=== PATIENT | male | born 1955 | race Caucasian/White ===

== ENCOUNTER 2016-10-08 05:17 | Emergency (ER) | payer OTHER ==
[~2016-10-08] VITALS: Ht 165.1 cm; Wt 95.9 kg
[~2016-10-08 05:17] MED LIST: AMLO2.5T PO; IBUP-2070 PO; METH10 PO
[2016-10-08] MEDS ORDERED: KETOROLAC TROMETHAMINE 60 MG/2 ML VIAL IM ONE (06:30)
[2016-10-08 08:48] VITALS: BP 144/95
== END 2016-10-08 08:52 | disposition home or self-care (01) ==
LOC: EMS 05:19
DX: S29.012A Strain of muscle and tendon of back wall of thorax, initial encounter (principal); I10 Essential (primary) hypertension; F17.210 Nicotine dependence, cigarettes, uncomplicated; V19.9XXA Pedal cyclist (driver) (passenger) injured in unspecified traffic accident, initial encounter; Y93.89 Activity, other specified; Y92.89 Other specified places as the place of occurrence of the external cause; Y99.8 Other external cause status
CPT/HCPCS: 71010; 96372; 99283; J1885

== ENCOUNTER 2016-10-31 14:16 | Emergency (ER) | payer OTHER ==
[~2016-10-31] VITALS: Ht 172.7 cm; Wt 96.4 kg
[2016-10-31] MEDS ORDERED: KETOROLAC TROMETHAMINE 60 MG/2 ML VIAL IM ONE (16:15)
[2016-10-31] MEDS ORDERED: METHOCARBAMOL 500 MG TABLET PO ONE (16:15)
[2016-10-31 18:05] VITALS: BP 159/80
== END 2016-10-31 18:06 | disposition home or self-care (01) ==
LOC: EMS 14:18
DX: M54.6 Pain in thoracic spine (principal); I10 Essential (primary) hypertension; F17.210 Nicotine dependence, cigarettes, uncomplicated
CPT/HCPCS: 96372; 99283; J1885

== ENCOUNTER 2018-01-24 09:32 | Emergency (ER) | payer OTHER ==
[~2018-01-24] VITALS: Ht 162.6 cm; Wt 77.7 kg
[~2018-01-24 09:32] MED LIST changes: -AMLO2.5T PO; +AMLO5TAB66 PO; +DOXY50CA2 PO; +HYDR25TA PO; -IBUP-2070 PO; +IPRA3S NASAL; +IPRAHFA IH; -METH10 PO
[2018-01-24] MEDS ORDERED: BUPIVACAINE HCL/PF 0.5% 10 ML VIAL SQ ONE (12:00)
[2018-01-24 12:21] LABS: BASOPHILS % (AUTO) 0.7 % (0.0-2.0); EOSINOPHILS % (AUTO) 1.2 % (1.0-6.0); HEMATOCRIT 36.5 % (41-53); LYMPHOCYTES # (AUTO) 1.1 K/uL (1.0-4.8); LYMPHOCYTES % (AUTO) 20.7 % (22.0-44.0); MEAN CORPUSCULAR HEMOGLOBIN 36.6 pg (26.0-34.0); MEAN CORPUSCULAR HGB CONC 35.4 G/dL (31.0-37.0); MEAN CORPUSCULAR VOLUME 103 fL (80-100); MONOCYTES # (AUTO) 0.4 K/uL (0.1-1.0); MONOCYTES % (AUTO) 6.9 % (2.0-9.0); NEUTROPHILS # (AUTO) 3.8 K/uL (1.8-7.7); NEUTROPHILS % (AUTO) 70.5 % (40.0-70.0); PLATELET COUNT (AUTO) 83 K/uL (150-450); RED BLOOD CELL COUNT(AUTO) 3.54 MIL/uL (4.50-5.90); RED CELL DISTRIBUTION WIDTH 14.4 % (11.5-14.5)
[2018-01-24 12:35] LABS: ANION GAP 9 mmol/L (8-16); CALCIUM, TOTAL 8.9 mg/dL (8.8-10.5); CARBON DIOXIDE 29 mmol/L (22-29); CHLORIDE 103 mmol/L (98-107); CREATININE 0.66 mg/dL (0.60-1.30); GLOMERULAR FILTR. RATE CALC > 60 mL/min (>60); GLUCOSE,RANDOM 84 mg/dL (70-110); POTASSIUM 4.2 mmol/L (3.5-5.1); SODIUM SERUM 141 mmol/L (136-145); UREA NITROGEN, BLOOD 7 mg/dL (7-18)
[2018-01-24 12:40] LABS: APPEARANCE,URINE CLEAR (CLEAR); BILIRUBIN,URINE NEGATIVE (NEGATIVE); GLUCOSE, URINE (UA) NEGATIVE (NEGATIVE); KETONES,URINE NEGATIVE (NEGATIVE); LEUKOCYTE ESTERASE ,URINE NEGATIVE (NEGATIVE); NITRATE,URINE NEGATIVE (NEGATIVE); OCCULT BLOOD,URINE NEGATIVE (NEGATIVE); PROTEIN,URINE NEGATIVE (NEGATIVE)
[2018-01-24 12:41] LABS: AMPHET/METH SCREEN,URINE NEGATIVE (NEGATIVE); BARBITURATE SCREEN, URINE NEGATIVE (NEGATIVE); BENZODIAZEPINES SCREEN,URINE NEGATIVE (NEGATIVE); CANNABINOID SCREEN,URINE NEGATIVE (NEGATIVE); COCAINE SCREEN,URINE NEGATIVE (NEGATIVE); METHADONE SCREEN, URINE NEGATIVE (NEGATIVE); OPIATE SCREEN,URINE POSITIVE (NEGATIVE)
[2018-01-24 12:43] LABS: PHENCYCLIDINE SCREEN,URINE POSITIVE (NEGATIVE)
[2018-01-24 12:43] LABS: ALANINE AMINOTRANSFERASE 71 U/L (12-78); ALKALINE PHOSPHATASE 130 U/L (46-116); AMMONIA 17 umol/L (11-32); ASPARTATE AMINOTRANSFERASE 87 U/L (15-37); BILIRUBIN,TOTAL 1.1 mg/dL (0.1-1.0); LIPASE 116 U/L (73-393); TOTAL PROTEIN, SERUM 8.5 g/dL (6.4-8.2)
[2018-01-24 12:45] LABS: TROPONIN I < 0.02 ng/mL (0.00-0.05)
[2018-01-24 12:47] LABS: RBC,URINE None Seen /HPF (0-2)
[2018-01-24 12:48] LABS: BACTERIA,URINE None Seen /HPF (None Seen); WBC,URINE 0-2 /HPF (0-5)
[2018-01-24 12:48] LABS: LACTIC ACID 1.6 mmol/L (0.4-2.0)
[2018-01-24 12:50] LABS: YEAST,URINE Rare /HPF (None Seen)
[2018-01-24 12:57] LABS: B-TYPE NATRIURETIC PEPTIDE 18 pg/mL (0-100)
[2018-01-24] MEDS ORDERED: CEPHALEXIN MONOHYDRATE 500 MG CAPSULE PO ONE (13:30)
[2018-01-24] MEDS ORDERED: DOXYCYCLINE HYCLATE 100 MG CAPSULE PO ONE (13:30)
[2018-01-24] MEDS ORDERED: KETOROLAC TROMETHAMINE 60 MG/2 ML VIAL IM ONE (13:30)
[2018-01-24 13:38] VITALS: BP 132/76
== END 2018-01-24 13:53 | disposition home or self-care (01) ==
LOC: EMS 09:33
DX: L02.413 Cutaneous abscess of right upper limb (principal); L03.113 Cellulitis of right upper limb; I10 Essential (primary) hypertension; F17.210 Nicotine dependence, cigarettes, uncomplicated; F10.10 Alcohol abuse, uncomplicated; F11.10 Opioid abuse, uncomplicated; F16.10 Hallucinogen abuse, uncomplicated
CPT/HCPCS: 10060; 29240; 36415; 71045; 80053; 80307; 81001; 82140; 83605; 83690; 83880; 84484; 85025; 93005; 96372; 99285; 99406; G0480; J1885; J3490; 99284

== ENCOUNTER 2018-01-27 19:03 | Emergency (ER) | payer OTHER ==
[~2018-01-27] VITALS: Ht 162.6 cm; Wt 77.2 kg
[~2018-01-27 19:03] MED LIST changes: -DOXY50CA2 PO
[2018-01-27] MEDS ORDERED: SLOWK8 PO (19:15)
[2018-01-27] MEDS ORDERED: FURO20 PO (19:15)
[2018-01-27] MEDS ORDERED: CEPH500 PO (19:15)
[2018-01-27] MEDS ORDERED: DOXY100C40 PO (19:15)
[2018-01-27 21:53] VITALS: BP 128/63
== END 2018-01-27 21:53 | disposition home or self-care (01) ==
LOC: EMS 19:04
DX: Z48.817 Encounter for surgical aftercare following surgery on the skin and subcutaneous tissue (principal); I10 Essential (primary) hypertension; F20.9 Schizophrenia, unspecified; F17.210 Nicotine dependence, cigarettes, uncomplicated; F11.10 Opioid abuse, uncomplicated
CPT/HCPCS: 99283